=== PATIENT | female | born 1965 | race Caucasian/White ===

== ENCOUNTER → 2021-03-11 17:01 | Outpatient (CLI) | payer BC, SELFPAY ==
--- NOTE | ~2021-03-11 | MM_ITS ---
EXAMINATION: MM screening lior BI w narinder HISTORY: Screening mammogram TECHNIQUE: Craniocaudal and mediolateral oblique 3-D tomosynthesis images were obtained and synthetic 2-D images were generated. CAD analysis was submitted and interpreted. COMPARISON: 06/06/2019 bilateral digital screening mammogram BREAST PARENCHYMAL COMPOSITION: There are scattered areas of fibroglandular density. FINDINGS: There is a lobular approximately 11 mm mass in the upper outer quadrant of the left breast (MLO Tomosynthesis image 49/104; CC Tomosynthesis image 34/85). Diagnostic left mammogram and left br east ultrasound examination are recommended. Otherwise there is no evidence of suspicious mass, calcification, or architectural distortion to sugg est malignancy in either breast. There has been no other suspicious interval change. IMPRESSION: 1. 11 mm mass, upper outer quadrant left breast 2. Diagnostic left mammogram and left breast ultrasound examination are recommended BI-RADS Category 0: Incomplete: Needs additional imaging evaluation. Reviewed, dictated and finalized at location A. IMPRESSION: 1. 11 mm mass, upper outer quadrant left breast 2. Diagnostic left mammogram and left breast ultrasound examination are recomme nded BI-RADS Category 0: Incomplete: Needs additional imaging evaluation.
== END ==
PROVIDERS: PCP Family Medicine; Visit Provider Family Medicine Sports Medicine
DX: Z12.31 Encounter for screening mammogram for malignant neoplasm of breast (principal); R92.8 Other abnormal and inconclusive findings on diagnostic imaging of breast
CPT/HCPCS: 77063; 77067

== ENCOUNTER → 2021-04-22 09:16 | Outpatient (CLI) | payer BC, SELFPAY ==
--- NOTE | ~2021-04-22 | MMUS_ITS ---
EXAMINATION: MM diagnostic lior LT w narinder, US breast LT limited HISTORY: Follow-up left breast mass TECHNIQUE: Additional 3-D tomosynthesis images of the left breast were performed and synthetic 2-D im ages were generated. CAD analysis was submitted and interpreted. High resolution Limited left breast ultrasound was performed. COMPARISON: 03/11/2021 BREAST PARENCHYMAL COMPOSITION: Breast composed of scattered areas of fibroglandular density. FINDINGS: MAMMOGRAPHIC FINDINGS: There is a persistent 9 mm mass in the upper outer quadrant of the left breast with layering milk of calcium, consistent with benign fibrocystic disease. ULTRASOUND: Limited left breast ultrasound: At 12:00, 5 cm from the nipple, there is an 8 mm cyst at 2:00, 5 cm f rom the nipple, there is an oval hypoechoic mass measuring 1 cm with small internal cysts, likely raimundo ign cluster of microcysts or intramammary lymph node. IMPRESSION: 1. Probable benign left breast masses. 2. Recommend 6 month follow-up diagnostic left mammogram and ultrasound BI-RADS category 3, probably benign findings. Reviewed, dictated and finalized at location A. IMPRESSION: 1. Probable benign left breast masses. 2. Recommend 6 month follow-up diagnostic left mammogram and ultrasound BI-RADS category 3, probably benign findings.
== END ==
PROVIDERS: PCP Family Medicine; Visit Provider Family Medicine
DX: N60.02 Solitary cyst of left breast (principal)
CPT/HCPCS: 76642; 77061; 77065; G0279

== ENCOUNTER → 2021-10-14 10:11 | Outpatient (CLI) | payer BC, SELFPAY ==
--- NOTE | ~2021-10-14 | XR_ITS ---
XR hand RT min 3V DATE: 10/14/2021 12:12 INDICATION: Right first digit pain TECHNIQUE: 3 views of the right hand COMPARISON: None FINDINGS: There is osteoarthritis at some of the interphalangeal joints, most pronounced at distal in terphalangeal joint of fifth digit. There is mild osteoarthritis at the first digit interphalangeal j oint. No fracture, dislocation, periosteal reaction or bone destruction. No erosive change. No chondrocalci nosis. IMPRESSION: Osteoarthritis Reviewed, dictated and finalized at location A. TIC SHAPER IMPRESSION: Osteoarthritis
== END ==
PROVIDERS: PCP Nurse Practitioner Family; Visit Provider Nurse Practitioner Family
DX: M19.041 Primary osteoarthritis, right hand (principal)
CPT/HCPCS: 73130

== ENCOUNTER 2021-10-28 09:15 | Outpatient (CLI) | payer BC, SELFPAY ==
--- NOTE | ~2021-10-28 | MMUS_ITS ---
EXAMINATION: MM diagnostic lior LT w narinder, US breast LT limited HISTORY: Six-month follow-up for probably benign left breast mass TECHNIQUE: Additional 3-D tomosynthesis images of the left breast were performed and synthetic 2-D im ages were generated. CAD analysis was submitted and interpreted. High resolution limited left breast ultrasound was performed. COMPARISON: 04/22/2021, 03/11/2021, 06/06/2019 BREAST PARENCHYMAL COMPOSITION: There are scattered areas of fibroglandular density. FINDINGS: MAMMOGRAPHIC FINDINGS: There is a stable 11 mm oval, obscured, low density mass at the 1:00 location 8 cm from the nipple wh ich demonstrates a layering calcification. There has been no suspicious interval change. No new mass, calcification, or architectural distortion are identified. ULTRASOUND: There is an 11 mm cyst at the 1:00 location 7 cm from the nipple corresponding to the mammographic fi nding in question. Again seen is a questionable stable 10 mm x 3 mm oval, circumscribed, parallel, co mplex cystic and solid mass at the 2:00 location 6 cm from the nipple with no posterior features or i nternal vascularity. IMPRESSION: 1. Stable, probably benign mass at the 2:00 location 6 cm from the nipple. 2. Recommend 6 month follow-up diagnostic mammogram and ultrasound. BI-RADS category 3, probably benign findings. Reviewed, dictated and finalized at location A. S OFFBEARER IMPRESSION: 1. Stable, probably benign mass at the 2:00 location 6 cm from the nipple. 2. Recommend 6 month follow-up diagnostic mammogram and ultrasound. BI-RADS category 3, probably benign findings.
== END 2021-10-28 09:16 ==
LOC: MICIMG 09:15
PROVIDERS: PCP Family Medicine; Visit Provider Family Medicine
DX: N63.20 Unspecified lump in the left breast, unspecified quadrant (principal); R92.8 Other abnormal and inconclusive findings on diagnostic imaging of breast
CPT/HCPCS: 76642; 77061; 77065; G0279

== ENCOUNTER 2022-01-28 09:45 | Outpatient (CLI) | payer BC, SELFPAY ==
--- NOTE | ~2022-01-28 | CT_ITS ---
EXAMINATION: CT diagnostic chest wo con DATE: 01/28/2022 10:09 INDICATION: Vasculitis TECHNIQUE: Computed tomography (CT) of the chest was performed without intravenous contrast. The dose -length product (DLP) was 579.59 mGy-cm. Automated exposure control and iterative reconstruction tech nique were employed. COMPARISON: 02/15/2018 FINDINGS: There is a stable 9 mm nodule of the right middle lobe. The lungs are free of acute opaciti es. There is no pleural effusion or pneumothorax. No pathologically enlarged thoracic lymph nodes are identified. The heart size is normal. Calcified coronary artery atherosclerosis is noted. The gallbl adder is surgically absent. There is mild thoracic spondylosis. IMPRESSION: 1. Stable right middle lobe nodule, consistent with old granulomatous disease. Reviewed, dictated and finalized at location A.
== END 2022-01-28 09:46 ==
PROVIDERS: PCP Family Medicine
DX: I77.6 Arteritis, unspecified (principal); I25.10 Atherosclerotic heart disease of native coronary artery without angina pectoris; M47.814 Spondylosis without myelopathy or radiculopathy, thoracic region
CPT/HCPCS: 71250

== ENCOUNTER → 2022-05-05 09:12 | Outpatient (CLI) | payer MEDICAID, SELFPAY ==
--- NOTE | ~2022-05-05 | MMUS_ITS ---
EXAMINATION: MM diagnostic lior BI w narinder, US breast BI limited HISTORY: Six-month follow-up of stable probably benign left breast mass at 2:00 6 cm from nipple; scr eening of right breast TECHNIQUE: Full field and spot ML, MLO and CC 3-D tomosynthesis images of both breasts were performed and synthetic 2-D images were generated. CAD analysis was submitted and interpreted. High resolution bilateral upper outer and lower-outer quadrant breast ultrasound was performed. COMPARISON: 10/28/2021 diagnostic left mammogram and limited left breast ultrasound 04/22/2021 diagnostic left mammogram 03/07/2021, 06/06/2019 bilateral screening mammogram examinations BREAST PARENCHYMAL COMPOSITION: There are scattered areas of fibroglandular density. FINDINGS: MAMMOGRAPHIC FINDINGS: Stable mammographic appearance of right breast since 06/06/2019 Stable approximately 8 mm opacity, upper outer left breast. ULTRASOUND: No suspicious mass or shadowing of either breast is detected. Right breast: No suspicious mass or shadowing is detected Left breast: 1:00 7 cm from nipple: 7.7 x 5.8 x 9.7 mm parallel circumscribed sonolucency with through transmissio n posterior enhancement 2:00 6 cm from nipple: Parallel circumscribed 7.2 x 6.3 x 3.9 mm probable septated cyst without inter nal vascularity or posterior shadowing IMPRESSION: 1. Benign findings; no mammographic evidence of malignancy 2. Routine mammographic screening is recommended BI-RADS Category 2: Benign finding(s). Reviewed, dictated and finalized at location A. IMPRESSION: 1. Benign findings; no mammographic evidence of malignancy 2. Routine mammographic screening is recommended BI-RADS Category 2: Benign finding(s).
== END ==
PROVIDERS: PCP Family Medicine; Visit Provider Family Medicine
DX: R92.8 Other abnormal and inconclusive findings on diagnostic imaging of breast (principal)
CPT/HCPCS: 76642; 77062; 77066; G0279

== ENCOUNTER 2023-05-12 07:53 | Outpatient (CLI) | payer OTHER, SELFPAY ==
--- NOTE | ~2023-05-12 | MM_ITS ---
EXAMINATION: MM screening [facility] BI w narinder HISTORY: Screening mammogram TECHNIQUE: Craniocaudal and mediolateral oblique 3-D tomosynthesis images were obtained and synthetic 2-D images were generated. CAD analysis was submitted and interpreted. COMPARISON: 05/05/2022, 10/28/2021, 04/22/2021, 03/11/2021, 06/06/2019 BREAST PARENCHYMAL COMPOSITION: There are scattered areas of fibroglandular density. FINDINGS: A stable mass in the upper outer quadrant of the left breast is consistent with a benign fi nding given the lack of interval change. No suspicious mass, calcification, or architectural distorti on are identified in either breast to suggest malignancy. There has been no suspicious interval lopez e. IMPRESSION: 1. No mammographic evidence of malignancy. 2. Recommend routine screening mammography in one year. BI-RADS Category 2: Benign finding(s). Reviewed, dictated and finalized at location A.
== END 2023-05-12 07:54 | disposition home or self-care (01) ==
PROVIDERS: PCP Family Medicine; Visit Provider Family Medicine
DX: Z12.31 Encounter for screening mammogram for malignant neoplasm of breast (principal)
CPT/HCPCS: 77063; 77067